=== PATIENT | female | born 1955 | race Caucasian/White ===

== ENCOUNTER 2016-10-26 16:30 | Emergency (ER) | payer BC | END 2016-10-26 18:59 | disposition left against medical advice (07) | LOC: ER 16:30 | DX: Z53.21 Procedure and treatment not carried out due to patient leaving prior to being seen by health care provider (principal) ==

== ENCOUNTER 2016-10-26 20:18 | Emergency (ER) | payer BC ==
[2016-10-26] MEDS ORDERED: DILAUDID 1 MG/ML AMP ONE (22:45)
== END 2016-10-26 23:32 | disposition home or self-care (01) ==
LOC: ER 20:18
DX: M79.606 Pain in leg, unspecified (principal); M54.41 Lumbago with sciatica, right side
CPT/HCPCS: 72100; 96372